=== PATIENT | male | born 1965 | race Native Hawaiian/Other Pacific Islander ===

== ENCOUNTER 2021-04-30 12:24 | Outpatient (CLI) | payer BC, OTHER ==
[~2021-04-30] VITALS: Ht 182.9 cm; Wt 81.6 kg
== END 2021-04-30 19:04 | disposition home or self-care (01) ==
LOC: INF 12:24
PROVIDERS: ATTEND Family Medicine
DX: Z23 Encounter for immunization (principal); U07.1 COVID-19
CPT/HCPCS: 96365; M0244